=== PATIENT | male | born 1985 | race Caucasian/White ===

== ENCOUNTER 2016-08-13 19:52 | Emergency (ER) | payer BC ==
[~2016-08-13] VITALS: Ht 180.3 cm; Wt 95.3 kg
[2016-08-13 19:55] VITALS: BP_SYST 122
[2016-08-13 20:35] LABS: BILIRUBIN,URINE NEGATIVE (NEGATIVE); BLOOD, URINE NEGATIVE (NEGATIVE); CLARITY/URINE CLEAR (CLEAR); COLOR,URINE YELLOW (YELLOW); GLUCOSE,URINE NEGATIVE (NEGATIVE); KETONES,URINE NEGATIVE (NEGATIVE); LEUKOCYTE ESTERASE ,URINE NEGATIVE (NEGATIVE); NITRITE, URINE NEGATIVE (NEGATIVE); PH,URINE 5.5 (5.0-8.0); PROTEIN URINE NEGATIVE (NEGATIVE); UROBILINOGEN,URINE 0.2 (0.2-1.0)
--- NOTE | 2016-08-13 22:35 | NUR ---
Patient placed to bed. Report recieved from Deirdre ANTHONY. Will assume care.
--- NOTE | 2016-08-13 22:37 | NUR ---
Patient arrived to ED a/o x 4 with c/o L flank pain radiating to back x 1 month. Patient states new onset of increasing pain x 3 days prompting ED visit. Pain /10. Reports tenderness on palpation. Denies urinary symptoms. Denies N/V. No fever. Father at bedside. Will continue to monitor.
--- NOTE | 2016-08-13 23:00 | NUR ---
ED MD Cohen at bedside for medical evaluation.
[2016-08-13 23:47] LABS: HEMATOCRIT 48.3 % (36-54); HEMOGLOBIN 15.7 g/dL (14.0-18.0); MEAN CORPUSCULAR HEMOGLOBIN 28 pg (27-31); MEAN CORPUSCULAR HGB CONC 33 % (32-36); MEAN CORPUSCULAR VOLUME 86 fL (79.0-98.0); PLATELET COUNT (AUTO) 185 K/uL (130-430); RED BLOOD CELL COUNT(AUTO) 5.59 MIL/uL (4.2-6.2); RED CELL DISTRIBUTION WIDTH 12.3 % (9.0-15.0); WHITE BLOOD COUNT (AUTO) 14.5 K/uL (4.8-10.8)
[2016-08-13 23:49] LABS: CALCIUM 9.5 mg/dL (8.4-11.0); CREATININE 1.1 mg/dL (0.55-1.30)
[2016-08-13 23:54] LABS: ALBUMIN 4.6 g/dL (3.4-4.8); TOTAL BILIRUBIN 0.5 mg/dL (0.0-1.0)
[2016-08-13 23:55] LABS: PROTHROMBIN TIME 10.8 SECS (9.5-12.5)
--- NOTE | 2016-08-14 | NUR ---
Ultrasound at bedside.
--- NOTE | 2016-08-14 00:30 | NUR ---
Patient resting quietly. No acute distress noted. Vital signs within normal range.
[2016-08-14 00:32] LABS: BAND % (MANUAL) 1 % (0-6); BASOPHILS % (MANUAL) 0 % (0-2); EOSINOPHILS % (MANUAL) 1 % (0-7); LYMPHOCYTES % (MANUAL) 14 % (20-46); MONOCYTES % (MANUAL) 9 % (0-11)
--- NOTE | 2016-08-14 00:53 | NUR ---
ED MD Baldwinek at bedside discussing with patient results of ultrasound.
--- NOTE | 2016-08-14 00:53 | NUR ---
Lazara morales in EDM - 08/14/16 at 0237 by [email or web address] ED MD Peak at bedside discussing with patient results of ultrasound
[2016-08-14 01:23] VITALS: BP_SYST 128
--- NOTE | 2016-08-14 01:23 | NUR ---
Patient given written and verbal discharge instructions and verbalizes understanding. ER MD discussed with patient the results and treatment provided. Patient in stable condition. ID arm band removed. IV catheter removed intact and dressing applied, no active bleeding. No Rx given. Patient educated on pain management and to follow up with PMD. Pain Scale 2/10. Opportunity for questions provided and answered.
== END 2016-08-14 01:23 | disposition home or self-care (01) ==
LOC: EDBD 19:52 → SED 19:52
DX: R10.9 Unspecified abdominal pain (principal); M54.9 Dorsalgia, unspecified; Z86.718 Personal history of other venous thrombosis and embolism
CPT/HCPCS: 36415; 76700-TC; 80053; 81003; 83690-TC; 85007; 85025; 85027; 85379; 85610-TC; 85730-TC; 99285